=== PATIENT | male | born 1935 | race Caucasian/White ===

== ENCOUNTER → 2022-05-08 | Outpatient (CLI) | payer MEDICARE ==
[2022-05-08 14:07] LABS: Partial Thromboplastin Time 32.5 sec (22.0-30.0); Prothrombin Time 10.6 sec (9.0-12.0)
[2022-05-08 17:50] LABS: HCT 40.7 % (39.6-50.0); HGB 13.2 g/dL (13.0-17.0); MCH 29.4 pg (27.0-32.0); MCHC 32.4 g/dL (32.0-37.0); MCV 90.6 fL (80.0-97.0); Mean Platelet Volume 9.6 fL (9.5-12.2); NRBC Per 100 WBC 0 /100 WBCS (0.0-0.0); Platelet Count 447 X 10*3/uL (140-440); RBC 4.49 X 10*6/uL (4.40-5.60); RDW 12.9 % (11.5-14.5); WBC 10.55 X 10*3/uL (4.50-10.00)
[2022-05-08 18:04] LABS: African American GFR (CKD) 84.5 (60.0-200.0); Albumin 4.1 g/dL (3.8-4.9); Albumin/Globulin Ratio 1.72 (1.60-3.17); Anion Gap 12.3 mmol/L (10.00-18.00); BUN/Creat Ratio 23.84 Ratio (12.00-20.00); Blood Urea Nitrogen 22.6 mg/dL (9.0-27.0); Calcium 9.1 mg/dL (8.7-10.3); Carbon Dioxide 23.7 mmol/L (20.0-27.5); Globulin 2.4 g/dL (1.6-3.3); Non-African American GFR(CKD) 72.9 (60.0-200.0); Potassium 4.6 mmol/L (3.5-5.5); Total Bilirubin 0.3 mg/dL (0.30-1.20); Total Protein 6.5 g/dL (6.2-8.2)
[2022-05-08 18:11] LABS: Appearance,Urine Clear (Clear); Bilirubin,Urine Negative (Negative); Blood,Urine Negative (Negative); Color,Urine Yellow (Yellow); Ketones,Urine Trace mg/dL (Negative); Nitrite,Urine Negative (Negative); Specific Gravity,Urine 1.023 (1.001-1.030); Urobilinogen,Urine 0.2 (0.2,1.0)
[2022-05-08 18:17] LABS: Bacteria,Urine None Seen /HPF (None Seen)
== END | disposition home or self-care (01) ==
LOC: LABPAT 12:32
PROVIDERS: ATTEND Orthopaedic Surgery
DX: Z01.812 Encounter for preprocedural laboratory examination (principal); M16.12 Unilateral primary osteoarthritis, left hip; I26.99 Other pulmonary embolism without acute cor pulmonale; I82.401 Acute embolism and thrombosis of unspecified deep veins of right lower extremity
CPT/HCPCS: 80053; 81001; 85027; 85610; 85730; 87070

== ENCOUNTER → 2022-06-12 | Outpatient (CLI) | payer MEDICARE ==
[2022-06-12 12:37] LABS: Partial Thromboplastin Time 32.4 sec (22.0-30.0); Prothrombin Time 10.5 sec (9.0-12.0)
[2022-06-12 17:54] LABS: African American GFR (CKD) 77.7 (60.0-200.0); Albumin 4.1 g/dL (3.8-4.9); Albumin/Globulin Ratio 1.56 (1.60-3.17); Anion Gap 11.5 mmol/L (10.00-18.00); BUN/Creat Ratio 23.86 Ratio (12.00-20.00); Blood Urea Nitrogen 24.1 mg/dL (9.0-27.0); Calcium 9.1 mg/dL (8.7-10.3); Carbon Dioxide 24.4 mmol/L (20.0-27.5); Globulin 2.6 g/dL (1.6-3.3); Potassium 4.5 mmol/L (3.5-5.5); Total Bilirubin 0.4 mg/dL (0.30-1.20); Total Protein 6.7 g/dL (6.2-8.2)
[2022-06-12 18:00] LABS: HCT 40.3 % (39.6-50.0); HGB 12.9 g/dL (13.0-17.0); MCH 29.5 pg (27.0-32.0); Mean Platelet Volume 10.1 fL (9.5-12.2); NRBC Per 100 WBC 0 /100 WBCS (0.0-0.0); Platelet Count 247 X 10*3/uL (140-440); RBC 4.38 X 10*6/uL (4.40-5.60); RDW 14.1 % (11.5-14.5); WBC 6.72 X 10*3/uL (4.50-10.00)
[2022-06-12 23:24] LABS: Appearance,Urine Clear (Clear); Bilirubin,Urine Negative (Negative); Blood,Urine Negative (Negative); Color,Urine Yellow (Yellow); Ketones,Urine Negative (Negative); Nitrite,Urine Negative (Negative); PH, Urine 5.5 (5.0-8.0); Specific Gravity,Urine 1.017 (1.001-1.030); Urobilinogen,Urine 0.2 (0.2,1.0)
[2022-06-12 23:30] LABS: Bacteria,Urine None Seen /HPF (None Seen)
== END ==
LOC: LABPAT 11:23
PROVIDERS: ATTEND Orthopaedic Surgery
DX: M16.12 Unilateral primary osteoarthritis, left hip (principal)
CPT/HCPCS: 80053; 81001; 85027; 85610; 85730; 87070

== ENCOUNTER 2022-06-20 09:06 | Day surgery (SDC) | payer MEDICARE ==
[2022-06-15 13:24] VITALS: BMI 29.0
[~2022-06-20 09:06] MED LIST: ACETAMINOPHEN TAB 500 MG TAB PO PRN; GABAPENTIN 300 MG CAP PO PRN; HYDROmorphone 0.5 MG/0.5 ML SYRINGE IVP PRN; MAGNESIUM HYDROXIDE 2,400 MG/10 ML CUP PO PRN; MELOXICAM 7.5 MG TAB PO PRN; NALOXONE 0.4 MG/ML 1 ML VIAL IV PRN; TRANEXAMIC ACID IN NACL,ISO-OS 1,000 MG in SALINE 1 100ML.BAG IVPB PRN
[2022-06-20] MEDS ORDERED: DEXAMETHASONE SOD PHOSPHATE 4 MG/ML 1 ML VIAL IV ONE (09:24)
[2022-06-20] MEDS ORDERED: ONDANSETRON 4 MG/2 ML VIAL IVP ONE (09:24)
[2022-06-20] MEDS ORDERED: HYDROmorphone 0.5 MG/0.5 ML SYRINGE IVP PRN (09:24)
[2022-06-20] MEDS: LACTATED RINGERS 1,000 ML IV SCH (10:08)
[2022-06-20] MEDS ORDERED: MIDAZOLAM 2 MG/2 ML VIAL IVP ONE (10:10)
[2022-06-20] MEDS ORDERED: fentaNYL (PF) 50 MCG/1 ML VIAL IVP ONE (10:10)
[2022-06-20] MEDS ORDERED: ceFAZolin 1,000 MG in SODIUM CHLORIDE 0.9% 1,000 ML IRRIGATION ONE (11:17)
[2022-06-20] MEDS ORDERED: ROPIVACAINE 5 MG/ML 30 ML VIAL MISCELLANE ONE ×2 (11:45→12:44)
[2022-06-20] MEDS ORDERED: LACTATED RINGERS 1,000 ML IV ONE (12:45)
--- NOTE | 2022-06-20 12:54 | P.OP ---
Date of Procedure: 06/20/22 Preoperative Diagnosis: Severe osteoarthritis left hip Postoperative Diagnosis: Severe osteoarthritis left hip Procedure(s) Performed: Left total hip arthroplasty with a direct anterior approach Implants: [employer] Polarstem standard size 4 with a collar [employer] R3, multi-hole hemispherical acetabular shell, 56 mm [employer] Reflection 6.5 mm cancellus screw, 20 mm 2, 25 mm, 15 mm [employer] R3, XLPE 20 acetabular liner [employer] Oxinium femoral head 36 m, +8 All components were press-fit. The articulation is Oxinium on polyethylene. Anesthesia: spinal Surgeon: Bear Jordan Senior Sales Manager #1: Yarelis Stovall Estimated Blood Loss (ml): 200 Pathology: other (Femoral head) Condition: stable Disposition: PACU Indications for Procedure: After failure of conservative treatment we discussed the surgical and nonsurgical treatment options at length. Patient wishes to proceed with a total hip arthroplasty with a direct anterior approach. Complications specific to this procedure were discussed at length, including but not limited to infection, leg length discrepancy, dislocation, nerve injury, and fracture. Covid-19 was also discussed at length with the patient, and they are aware of the current policies and procedures. The patient was given the option of delaying surgery, but they elect to proceed knowing these risks. Patient is aware of all these complications and informed consent was obtained Operative Findings: The operative findings are consistent with severe osteoarthritis of the left hip Description of Procedure: The patient was seen and evaluated in the preoperative area and the consent was reviewed. The operative site was marked with a skin marker. The patient verified the procedure and operative site. A CHINYERE block was placed by anesthesia in the preoperative area. The patient was then brought to the operating room and given preoperative antibiotics intravenously. 1 g of Tranexamic acid was also given intravenously. A spinal anesthetic was administered by the anesthesia department. The patient was then placed on the Pound table with the bony prominences well-padded. The hip area was then prepped with a ChloraPrep solution and draped in the usual sterile fashion. A universal timeout was then performed, which confirmed the patient's name, surgical site, ALLERGIES, and procedure being performed on the consent. Next the incision site was located at 1 cm distal and 4 cm lateral to the anterior superior iliac spine. The skin and subcutaneous tissues were sharply incised. Incision was carefully dissected down to the fascia overlying the tensor fascia kendy muscle. This fascia was then incised in line with the muscle fibers. Care was taken to stay laterally in order to avoid injuring the lateral femoral cutaneous nerve. Next, using blunt finger dissection, the tensor fascia kendy muscle was dissected off its investing fascia. The muscle was then carefully retracted laterally with a cobra retractor over the lateral neck of the femur. Next, the circumflex vessels were identified and cauterized using the Aquamantis device. The anterior hip capsule was then exposed. The capsule was then opened and an inverted T fashion. The retractors were then placed intracapsularly. The retractors were maintained intracapsular throughout the procedure. The proximal femur was then visualized. Fluoroscopic x-rays were then taken in order to evaluate the preoperative leg lengths. A small amount of traction was placed on the leg. The femoral neck was then osteotomized at the appropriate level above the lesser trochanter. A small wedge of bone was then removed from the remaining femoral head. Next, using a corkscrew the femoral head was removed from the acetabulum. On gross visual inspection, the femoral head had complete loss of articular cartilage and multiple periarticular osteophytes. The femoral head was then measured. Attention was then turned to the acetabulum. The acetabulum was exposed and any remaining labrum was excised. Sequential reaming of the acetabulum was performed using fluoroscopic guidance until there was a good bed of bleeding cancellus bone. When the appropriate size was reached, a trial was then placed. The position and fit of the trial was checked with fluoroscopy. The trial was then removed. Then, using fluoroscopic guidance, the final implant was impacted at 20 of anteversion and 40 of abduction, and fully seated in the acetabulum. 4 screws were then placed in the acetabulum. Again fluoroscopy was used to check position of the screws. Next, the liner was then impacted, with a 20 elevated liner located in the anterior superior quadrant. Component locking was confirmed. Attention was then directed to the femur. With the aid of the Pound table, the femur was externally rotated to approximately 130, extended, and adducted under the opposite leg. A side hook was then placed under the proximal femur, and the side hook elevator was used to elevate the proximal femur while releasing the capsule. Retractors were then placed. A capsular release was performed, as well as a release of the conjoined tendon, which afforded excellent visualization of the proximal femur. Next, a box osteotome was used to lateralize the proximal femur. A wharf hand was then used to locate the femoral canal. Sequential broaching was then performed with appropriate size which afforded excellent fixation in the proximal femur. A trial was then placed with appropriate head and neck, and the hip was gently reduced with the aid of the Pound table. Fluoroscopy was then used to check position of the components, as well as to evaluate the leg lengths and offset. The leg lengths and offset were measured as closely as possible to ensure stability of the hip. The hip was then gently dislocated and the trials were then removed. Final implants were then impacted and the hip was again reduced. Final fluoroscopic x-rays confirmed that the components were in anatomic position. The leg lengths and offset were measured and were found to coincide with the trial measurements. The hip was also taken through range of motion, and found to be stable. The hip was then copiously irrigated with antibiotic solution with pulsatile lavage. The hip was then irrigated with Irrisept solution. The soft tissues were then injected with a ropivacaine solution. A second dose of 1 g of Tranexamic acid was also given intravenously. The fascia was then closed with 2-0 strata fix suture. The subcutaneous tissue was closed with 3-0 Vicryl. The subcuticular tissue was closed with 3-0 strata fix suture. The skin was then closed with Exofin skin glue. After the glue and dried, and Optifoam silver impregnated dressing was applied. The patient was then transferred to the recovery room in stable condition. The assistant broker RANDA Leahy was required due to the complexity of surgery, and the need for skilled surgical territory manager for positioning, draping, exposure, retraction, and closure of the wound.
--- NOTE | 2022-06-20 13:27 | P.ANPRN ---
Procedure Note - Anesthesia - Nerve Block Performed Left Dmitriy Single Time Out Performed: Yes (1010) Date of Procedure: 06/20/22 Procedure Start Time: 10:10 Procedure Stop Time: :19 Location of Patient: PreOp Indication: Acute Post-Operative Pain, Dx/Pain Location, Requested by Surgeon Specifically requested for management of pain by : Bear Jordan Sedation Type: Sedate with meaningful contact maintained Preparation: Sterile Prep Position: Supine Catheter: None Needle Types: Pajunk Needle Gauge: 21 (100 mm) Ultrasound used to visualize needle placement: Yes Ultrasound used to observe medication spread: Yes Injectate: 0.5% Ropivacaine (see comment for volume) (20 cc + 10 cc of Normal saline) Blood Aspirated: No Pain Paresthesia on Injection Noted: No Resistance on Injection: Normal Image Stored and Saved: Yes Events: Uneventful and Well Tolerated
--- NOTE | 2022-06-20 14:07 | XR ---
EXAMINATION TYPE: XR Hip Limited LT DATE OF EXAM: 06/20/2022 CLINICAL HISTORY: Postoperative evaluation TECHNIQUE: Single portable view of the left hip was submitted. FINDINGS: Noted are changes of total hip arthroplasty with femoral and acetabular components appearin g well seated. Alignment is anatomic. Postsurgical soft tissue changes are evident. IMPRESSION: Satisfactory postoperative alignment
--- NOTE | 2022-06-20 15:25 | FL ---
EXAMINATION TYPE: FL guidance operating room DATE OF EXAM: 06/20/2022 FLUOROSCOPY Fluoroscopy time of 56 seconds was used during anterior left hip replacement. 3 image/s document/s t he procedure.
[2022-06-20] MEDS ORDERED: cloNIDine HCL 0.1 MG TAB PO STA (16:18)
[2022-06-20] MEDS: HYDROmorphone 0.5 MG/0.5 ML SYRINGE IVP PRN (16:28)
[2022-06-20] MEDS: ASPIRIN 325 MG TAB PO SCH (21:42)
[2022-06-20] MEDS: lisinopriL 20 MG TAB PO SCH (21:42)
[2022-06-20] MEDS: SENNOSIDES-DOCUSATE SODIUM 1 EACH TAB PO SCH (21:42)
[2022-06-20] MEDS: atenoloL 25 MG TAB PO SCH (21:42)
[2022-06-20] MEDS: NON FORMULARY DRUG (Simvastatin [Simvastatin] 40 MG Tablet) PO SCH (21:44)
[2022-06-20] MEDS: traMADol 50 MG TAB PO PRN (21:48)
[2022-06-21] MEDS: HYDROmorphone 0.5 MG/0.5 ML SYRINGE IVP PRN (00:04)
--- NOTE | 2022-06-21 07:34 | P.PN ---
Subjective Progress Note Date: 06/21/22 Principal diagnosis: Primary osteoarthritis left hip. Status post total left hip arthroplasty with direct anterior approach. This is an 87-year-old male who is status post total left hip arthroplasty with direct anterior approach. The patient is doing well from an orthopedic sta ndpoint. He has no new complaints or concerns today. Vital signs are stable. Objective - Vital Signs Vital signs: Vital Signs Temp 97.7 F 06/21/22 06:52 Pulse 50 L 06/21/22 06:52 Resp 17 06/21/22 06:52 BP 113/61 06/21/22 06:52 Pulse Ox 96 06/21/22 06:52 FiO2 Intake & Output 06/20/22 06/21/22 06/21/22 18:59 06:59 18:59 Intake Total 1921 730 Output Total 200 350 Balance 1721 380 Weight 84.3 kg Intake: IV 1201 Intake, IV Titration 250 Amount Lactated Ringers 1,000 ml 200 @ 20 mls/hr IV .Q24H [facility] Rx#:[id number] ceFAZolin 2 gm In Sodium 50 Chloride 0.9% 50 ml @ 100 mls/hr IVPB Q8H [facility] Rx#: [id number] Oral 720 480 Output: Urine 350 Estimated Blood Loss 200 - Exam This is a pleasant 87-year-old male in no acute distress. He is alert and orien cassidy 3. Exam of the left hip reveals that his dressing is clean, dry and intact. He has full foot and ankle motion without difficulty or pain. Neurovascular status to the lower extremity is intact. Assessment and Plan (1) Primary localized osteoarthritis of left hip Current Visit: Yes Status: Acute Code(s): M16.12 - UNILATERAL PRIMARY OSTEOARTHRITIS, LEFT HIP SNOMED Code(s): 504605026244905 (2) Status post total hip replacement, left Current Visit: Yes Status: Acute Code(s): Z96.642 - PRESENCE OF LEFT ARTIFICIAL HIP JOINT SNOMED Code(s): 406466247741 Plan: The clinical findings are discussed with the patient. He is awaiting rehab placement. We will begin physical therapy today. Plan discharged to inpatient rehab when cleared medically and placement is arranged.
[2022-06-21] MEDS: MONTELUKAST 10 MG TAB PO SCH (08:08)
[2022-06-21] MEDS: MULTIVITAMINS, THERA 1 EACH TAB PO SCH (08:08)
[2022-06-21] MEDS: lisinopriL 20 MG TAB PO SCH ×2 (08:08→21:25)
[2022-06-21] MEDS: ASPIRIN 325 MG TAB PO SCH (08:08)
[2022-06-21] MEDS: traMADol 50 MG TAB PO PRN ×3 (08:31→21:28)
[2022-06-21] MEDS: PANTOPRAZOLE 40 MG TABLET PO SCH (08:39)
[2022-06-21] MEDS: LACTATED RINGERS 1,000 ML IV SCH (09:12)
[2022-06-21 10:48] LABS: Basophils # (A) 0.02 X 10*3/uL (0.00-0.10); Basophils % (A) 0.2 %; Eosinophils # (A) 0.04 X 10*3/uL (0.04-0.35); Eosinophils % (A) 0.4 %; HCT 35.4 % (39.6-50.0); HGB 11.5 g/dL (13.0-17.0); Immature Grans, Automated 0.2 %; Lymphocytes # (A) 0.87 X 10*3/uL (0.90-5.00); Lymphocytes % (A) 9.3 %; MCH 29.9 pg (27.0-32.0); MCHC 32.5 g/dL (32.0-37.0); MCV 92.2 fL (80.0-97.0); Mean Platelet Volume 10.7 fL (9.5-12.2); Monocytes # (A) 1.23 X 10*3/uL (0.20-1.00); Monocytes % (A) 13.2 %; NRBC Per 100 WBC 0 /100 WBCS (0.0-0.0); Neutrophils # (A) 7.14 X 10*3/uL (1.80-7.70); Neutrophils % (A) 76.7 %; Platelet Count 251 X 10*3/uL (140-440); RBC 3.84 X 10*6/uL (4.40-5.60); RDW 13.9 % (11.5-14.5); WBC 9.32 X 10*3/uL (4.50-10.00)
--- NOTE | 2022-06-21 19:39 | P.CONS ---
History of Present Illness - Reason for Consult Consult date: 06/20/22 Medical management Requesting physician: Bear Jordan - Chief Complaint Hip surgery - History of Present Illness This is a pleasant 87-year-old patient, follows with Dr. Read. Chronic stable medical conditions include CAD with stent, hypertension, hyperlipidemia, peptic ulcer disease. Patient earlier today underwent left total hip arthroplasty. Some pain. No ch est pain no shortness breath. Comfortable. Laying in bed. Review of systems: GEN.: Retired EYES: None HEENT: None NECK: None RESPIRATORY: None CARDIOVASCULAR: None GASTROINTESTINAL: None GENITOURINARY: None MUSCULOSKELETAL: Joint pains LYMPHATICS: None HEMATOLOGICAL: None PSYCHIATRY: None NEUROLOGICAL: None Past medical history to include: Hypertension, hyperlipidemia, osteoarthritis, prostate cancer in 2003 treated with radiation, bleeding peptic ulcer in ,: Infection in April 2022, CAD with stent 2 Social history: This smoke in the past chewing tobacco. No alcohol. 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 Physical examination: VITAL SIGNS: 97.9, 16, 17, 171/73, 98% room air] GENERAL: BMI 30, declining but awake. EYES: Pupils equal. Conjunctiva normal. HEENT: External appearance of nose and ears normal, oral cavity grossly normal. NECK: JVD not raised; masses not palpable. HEART: First and second heart sounds are normal; no edema. LUNGS: Respiratory rate normal; clear to auscultation. ABDOMEN: Soft, nontender, liver spleen not palpable, no masses palpable. PSYCH: Alert and oriented x3; mood and affect normal. MUSCULOSKELETAL:No Clubbing/cyanosis;muscles-grossly intact. OA NEUROLOGICAL: Cranial nerves grossly intact; no facial asymmetry, power and sensation grossly intact. LYMPHATICS: No lymph nodes palpable in the axilla and neck INVESTIGATIONS, reviewed in the clinical context: 06/12/2022: White count 6.7 hemoglobin 12.9 potassium 4.5 creatinine 1.0 Assessment and plan: 1 -Left total hip arthroplasty Aspirin for DVT prophylaxis. Pain control. -Primary osteoarthritis Pain medications as needed -CAD with a prior history of stent Tenormin, aspirin -Peptic ulcer disease in the past. Prilosec -Essential hypertension Enalapril, Tenormin -Hyperlipidemia Simvastatin Care was discussed with the patient. Question answered. Thank you Dr. Jodran Past Medical History Past Medical History: Cancer, Hyperlipidemia, Hypertension, Osteoarthritis (OA) Additional Past Medical History / Comment(s): Covid infection Apr 2022,prostate CA-2003 40+ radiation txs, bleeding ulcer 1969 History of Any Multi-Drug Resistant Organisms: None Reported Past Surgical History: Cholecystectomy, Heart Catheterization With Stent, Hernia Repair Additional Past Surgical History / Comment(s): cardiac stents x2,rt hip x2,left total knee Past Anesthesia/Blood Transfusion Reactions: No Reported Reaction Additional Past Anesthesia/Blood Transfusion Reaction / Comm: no hx blood transfusion Date of Last Stent Placement:: 08-25-15 Past Psychological History: No Psychological Hx Reported Smoking Status: Former smoker Past Alcohol Use History: None Reported Additional Past Alcohol Use History / Comment(s): chewed tobacco for 30 yrs,quit chewing tobacco around age 61s Past Drug Use History: None Reported - Past Family History Mother Family Medical History: No Reported History Medications and Allergies Home Medications Medication Instructions Recorded Confirmed Type Aspirin 81 mg PO DAILY 06/15/22 06/15/22 History Enalapril Maleate 20 mg PO QAM 06/15/22 06/15/22 History Enalapril [Vasotec] 10 mg PO 06/15/22 06/15/22 History Fluticasone Nasal [place] [Flonase 2 spray EA NOSTRIL BID PRN 06/15/22 06/15/22 History Nasal [place]] Montelukast Sodium [Singulair] 10 mg PO QA 06/15/22 06/15/22 History Multivitamins, Thera [Multivitamin 1 tab PO DAILY 06/15/22 06/15/22 History (formulary)] Omeprazole [PriLOSEC] 20 mg PO QAM 06/15/22 06/15/22 History Simvastatin 40 mg PO 06/15/22 06/15/22 History atenoloL [Tenormin] 25 mg PO 06/15/22 06/15/22 History Aspirin 325 mg PO BID #60 tab 06/20/22 Rx Sennosides [Senokot] 2 tab PO DAILY PRN #60 tablet 06/20/22 Rx traMADol HCl [Ultram] 1 - 2 tab PO Q6H PRN #32 tab 06/20/22 Rx Allergies Allergy/AdvReac Type Severity Reaction Status Date / Time atorvastatin Allergy muscle pain Verified 06/20/22 09:43 Physical Exam Vitals: Vital Signs Temp Pulse Resp BP Pulse Ox 06/20/22 20:00 97.9 F 60 17 171/73 98 06/20/22 18:07 170/74 06/20/22 16:54 57 L 220/90 96 06/20/22 16:48 195/81 06/20/22 16:39 52 L 195/81 96 06/20/22 16:24 55 L 232/87 99 06/20/22 16:23 220/84 06/20/22 16:08 65 227/92 99 06/20/22 16:04 55 L 221/73 99 06/20/22 15:55 67 213/90 96 06/20/22 15:39 63 205/79 100 06/20/22 15:24 57 L 200/81 99 06/20/22 15:09 55 L 195/83 98 06/20/22 14:54 57 L 191/75 98 06/20/22 14:39 66 183/86 95 06/20/22 14:23 56 L 18 183/74 99 06/20/22 13:54 65 20 148/61 97 06/20/22 13:39 63 21 140/62 95 06/20/22 13:24 59 L 12 148/63 94 L 06/20/22 13:09 64 9 L 153/67 94 L 06/20/22 10:27 54 L 14 174/72 99 06/20/22 10:04 59 L 214/84 06/20/22 09:46 97.1 F L 60 16 238/107 99 Intake and Output 06/20/22 06/20/22 06/20/22 06:59 14:59 22:59 Intake Total 1201 720 Output Total 200 Balance 1001 720 Intake: IV 1201 Oral 720 Output: Estimated Blood Loss 200 Other: Weight 84.3 kg Results CBC & Chem 7: 06/21/22 05:22
--- NOTE | 2022-06-21 19:43 | P.PN ---
Progress Note - Text Progress Note Date: 06/21/22 - Chief Complaint Hip surgery Hospital course This is a pleasant 87-year-old patient, follows with Dr. Read. Chronic stable medical conditions include CAD with stent, hypertension, hyperlipidemia, peptic ulcer disease. Patient earlier today underwent left total hip arthroplasty. Some pain. No chest pain no shortness breath. Comfortable. Laying in bed. June 21: No chest pain no shortness breath. Oral intake fair. Plan is for patient to go to rehab. Working with therapy. Patient concerned about his peptic ulcer disease because of aspirin. Discussed with Mirna Bates from orthopedics. Change patient to subcu Lovenox. DC aspirin. Active Medications Atenolol (Atenolol 25 Mg Tab) 25 mg PO [facility] Last Admin: 06/20/22 21:42 Dose: 25 mg Enoxaparin Sodium (Enoxaparin 30 Mg/0.3 Ml Syringe) 30 mg SQ Q12HR [facility] Stop: 06/29/22 23:59 Hydromorphone HCl (Hydromorphone 0.5 Mg/0.5 Ml Syringe) 0.125 mg IVP Q3HR PRN PRN Reason: Pain Scale 1 to 3 Stop: 07/20/22 08:52 Hydromorphone HCl (Hydromorphone 0.5 Mg/0.5 Ml Syringe) 0.5 mg IVP Q3HR PRN PRN Reason: Pain Scale 7 to 10 Stop: 07/20/22 08:52 Last Admin: 06/21/22 00:04 Dose: 0.5 mg Hydromorphone HCl (Hydromorphone 0.5 Mg/0.5 Ml Syringe) 0.25 mg IVP Q3HR PRN PRN Reason: Pain Scale 4 to 6 Stop: 07/20/22 08:52 Lactated Ringer's (Lactated Ringers) 1,000 mls @ 20 mls/hr IV .Q24H [facility] Stop: 07/20/22 09:25 Last Admin: 06/21/22 09:12 Dose: Not Given Lisinopril (Lisinopril 20 Mg Tab) 20 mg PO [facility] Last Admin: 06/20/22 21:42 Dose: 20 mg Lisinopril (Lisinopril 20 Mg Tab) 40 mg PO [facility] Last Admin: 06/21/22 08:08 Dose: 40 mg Magnesium Hydroxide (Magnesium Hydroxide 2,400 Mg/10 Ml Cup) 2,400 mg PO DAILY PRN PRN Reason: Constipation Stop: 07/20/22 08:52 Montelukast Sodium ([facility] 10 Mg Tab) [facility] Admin: 06/21/22 08:08 Dose: 10 mg Multivitamins (Multivitamins, Thera 1 Each Tab) 1 each PO DAILY [facility] Last Admin: 06/21/22 08:08 Dose: 1 each Naloxone HCl (Naloxone 0.4 Mg/Ml 1 Ml Vial) 0.2 mg IV Q2M PRN PRN Reason: Opioid Reversal Stop: 07/20/22 08:52 Non-Formulary Medication (Simvastatin [Simvastatin]) 40 mg PO [facility] Last Admin: 06/20/22 21:44 Dose: Not Given Pantoprazole Sodium (Pantoprazole 40 Mg Tablet) 40 mg PO [facility] Last Admin: 06/21/22 08:39 Dose: 40 mg Senna/Docusate Sodium (Sennosides-Docusate Sodium 1 Each Tab) 2 each PO [facility] Stop: 07/20/22 21:01 Last Admin: 06/20/22 21:42 Dose: 2 each Tramadol HCl (Tramadol 50 Mg Tab) 50 mg PO Q6H PRN PRN Reason: Pain Scale 1 to 5 Stop: 07/20/22 08:56 Last Admin: 06/21/22 08:31 Dose: 50 mg Tramadol HCl (Tramadol 50 Mg Tab) 100 mg PO QID PRN PRN Reason: Pain Scale 6 to 10 Stop: 07/20/22 08:56 Last Admin: 06/21/22 13:46 Dose: 100 mg Past medical history to include: Hypertension, hyperlipidemia, osteoarthritis, prostate cancer in 2003 treated with radiation, bleeding peptic ulcer in ,: Infection in April 2022, CAD with stent 2 Social history: This smoke in the past chewing tobacco. No alcohol. 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 Physical examination: VITAL SIGNS: 97.8, 59, 18, 125/67, 96% room air GENERAL: Sitting up, comfortable. EYES: Pupils equal. Conjunctiva normal. HEENT: External appearance of nose and ears normal, oral cavity grossly normal. NECK: JVD not raised; masses not palpable. HEART: First and second heart sounds are normal; no edema. LUNGS: Respiratory rate normal; clear to auscultation. ABDOMEN: Soft, nontender, liver spleen not palpable, no masses palpable. PSYCH: Alert and oriented x3; mood and affect normal. MUSCULOSKELETAL:No Clubbing/cyanosis;muscles-grossly intact. OA INVESTIGATIONS, reviewed in the clinical context: June 21: White count 9.3 hemoglobin 11.5 platelets 251 06/12/2022: White count 6.7 hemoglobin 12.9 potassium 4.5 creatinine 1.0 Assessment and plan: 1 -Left total hip arthroplasty DC aspirin because of peptic ulcer disease. Subcu Lovenox 30 mg every 12 for 7 days. Pain control. -Primary osteoarthritis Pain medications as needed -CAD with a prior history of stent Tenormin, aspirin 81 mg -Peptic ulcer disease in the past. Prilosec -Essential hypertension Enalapril, Tenormin -Hyperlipidemia Simvastatin DC aspirin. Subcu Lovenox. Other medications to continue. Patient presented to rehab tomorrow. Thank you Dr. Jordan
[2022-06-21] MEDS: ENOXAPARIN 30 MG/0.3 ML SYRINGE SQ SCH (21:24)
[2022-06-21] MEDS: SENNOSIDES-DOCUSATE SODIUM 1 EACH TAB PO SCH (21:24)
[2022-06-21] MEDS: atenoloL 25 MG TAB PO SCH (21:24)
[2022-06-21] MEDS: NON FORMULARY DRUG (Simvastatin [Simvastatin] 40 MG Tablet) PO SCH (23:41)
[2022-06-22] MEDS: ENOXAPARIN 30 MG/0.3 ML SYRINGE SQ SCH ×2 (08:46→21:38)
[2022-06-22] MEDS: PANTOPRAZOLE 40 MG TABLET PO SCH (08:46)
[2022-06-22] MEDS: MONTELUKAST 10 MG TAB PO SCH (08:46)
[2022-06-22] MEDS: MULTIVITAMINS, THERA 1 EACH TAB PO SCH (08:46)
[2022-06-22] MEDS: lisinopriL 20 MG TAB PO SCH ×2 (08:46→21:38)
--- NOTE | 2022-06-22 10:49 | P.DS ---
Providers Expected date of discharge: 06/22/22 Attending physician: Bear Jordan Consults: 06/20/22 08:51 Consult Physician Routine Consulting Provider: Abel Velazquez Consult Reason/Comments: medical management Do you want consulting provider notified?: Yes Primary care physician: Billy Read - Discharge Diagnosis(es) (1) Primary localized osteoarthritis of left hip Current Visit: Yes Status: Acute (2) Status post total hip replacement, left Current Visit: Yes Status: Acute Hospital Course: This is a 87-year-old male with known history of degenerative arthritis of the left hip. The patient presented for evaluation as an outpatient. After discussion and consideration patient elects to proceed with total hip arthroplasty. The patient is seen preoperatively by Dr. Jordan and medically cleared for surgery by their primary care physician. Patient is admitted to [facility] on 06/20/2019 for total hip arthroplasty. The procedure is performed without complication or sequelae. The patient is doing well postoperatively. Labs and vital signs are stable on day of discharge. On day of discharge patient's hip incision is healing well. There is minimal erythema. There is no drainage noted at this time. There is minimal soft tissue swelling to the hip and thigh. Patient has full foot and ankle motion without difficulty or pain. Calf is soft and nontender to palpation. Neurovascular status to the left lower extremity is intact. Patient is discharged to rehab in good condition. Please see med rec for accurate list of home medications. Plan - Discharge Summary Discharge Rx Participant: Yes New Discharge Prescriptions: New Sennosides [Senokot] 2 tab PO DAILY PRN #60 tablet PRN Reason: Constipation traMADol HCl [Ultram] 1 - 2 tab PO Q6H PRN #32 tab PRN Reason: Pain Aspirin 325 mg PO BID #60 tab Continue atenoloL [Tenormin] 25 mg PO HS Fluticasone Nasal [place] [Flonase Nasal [place]] 2 spray EA NOSTRIL BID PRN PRN Reason: Congestion Montelukast Sodium [Singulair] 10 mg PO QAM Simvastatin 40 mg PO HS Enalapril [Vasotec] 10 mg PO HS Enalapril Maleate 20 mg PO QAM Aspirin 81 mg PO DAILY Multivitamins, Thera [Multivitamin (formulary)] 1 tab PO DAILY Omeprazole [PriLOSEC] 20 mg PO QAM Discharge Medication List Aspirin 81 mg PO DAILY 06/15/22 [History] Enalapril Maleate 20 mg PO QAM 06/15/22 [History] Enalapril [Vasotec] 10 mg PO HS 06/15/22 [History] Fluticasone Nasal [place] [Flonase Nasal [place]] 2 spray EA NOSTRIL BID PRN 06/15/22 [History] Montelukast Sodium [Singulair] 10 mg PO QAM 06/15/22 [History] Multivitamins, Thera [Multivitamin (formulary)] 1 tab PO DAILY 06/15/22 [History] Omeprazole [PriLOSEC] 20 mg PO QAM 06/15/22 [History] Simvastatin 40 mg PO HS 06/15/22 [History] atenoloL [Tenormin] 25 mg PO HS 06/15/22 [History] Aspirin 325 mg PO BID #60 tab 06/20/22 [Rx] Sennosides [Senokot] 2 tab PO DAILY PRN #60 tablet 06/20/22 [Rx] traMADol HCl [Ultram] 1 - 2 tab PO Q6H PRN #32 tab 06/20/22 [Rx] Follow up Appointment(s)/Referral(s): Bear Jordan DO [Doctor of Osteopathic Medicine] - 2 Weeks Activity/Diet/Wound Care/Special Instructions: Weightbearing as tolerated with walker. Leave dressing intact. Dressing may be removed by home care nurse or by patient in 7 days. Then change dressing twice daily until follow up. May shower with initial dressing intact and after removal. If dressing become saturated, please remove. Please take aspirin 325mg twice daily for 30 days to prevent blood clots. Recommend use of compression stockings daily until follow up to help prevent swelling and blood clots. May remove at night before sleeping. Please follow-up with [facility] in 2 weeks and call with any questions or concerns, . Discharge Disposition: TRANSFER TO SNF/ECF
[2022-06-22] MEDS: SENNOSIDES-DOCUSATE SODIUM 1 EACH TAB PO SCH (21:38)
[2022-06-22] MEDS: atenoloL 25 MG TAB PO SCH (21:38)
[2022-06-22] MEDS: NON FORMULARY DRUG (Simvastatin [Simvastatin] 40 MG Tablet) PO SCH (21:38)
--- NOTE | 2022-06-22 22:39 | P.PN ---
Progress Note - Text Progress Note Date: 06/22/22 - Chief Complaint Hip surgery Hospital course This is a pleasant 87-year-old patient, follows with Dr. Read. Chronic stable medical conditions include CAD with stent, hypertension, hyperlipidemia, peptic ulcer disease. Patient earlier today underwent left total hip arthroplasty. Some pain. No chest pain no shortness breath. Comfortable. Laying in bed. June 21: No chest pain no shortness breath. Oral intake fair. Plan is for patient to go to rehab. Working with therapy. Patient concerned about his peptic ulcer disease because of aspirin. Discussed with Mirna Bates from orthopedics. Change patient to subcu Lovenox. DC aspirin. June 22: Stable. Pain control. Tolerating diet. Will be going to rehab. No new issues. Meds reviewed Past medical history to include: Hypertension, hyperlipidemia, osteoarthritis, prostate cancer in 2003 treated with radiation, bleeding peptic ulcer in ,: Infection in April 2022, CAD with stent 2 Social history: This smoke in the past chewing tobacco. No alcohol. 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 Physical examination: VITAL SIGNS: 97.9, 72, 18, 1 57 x 67, 94% room air GENERAL: Sitting up, comfortable. EYES: Pupils equal. Conjunctiva normal. HEENT: External appearance of nose and ears normal, oral cavity grossly normal. NECK: JVD not raised; masses not palpable. HEART: First and second heart sounds are normal; no edema. LUNGS: Respiratory rate normal; clear to auscultation. ABDOMEN: Soft, nontender, liver spleen not palpable, no masses palpable. PSYCH: Alert and oriented x3; mood and affect normal. MUSCULOSKELETAL:No Clubbing/cyanosis;muscles-grossly intact. OA INVESTIGATIONS, reviewed in the clinical context: June 21: White count 9.3 hemoglobin 11.5 platelets 251 06/12/2022: White count 6.7 hemoglobin 12.9 potassium 4.5 creatinine 1.0 Assessment and plan: 1 -Left total hip arthroplasty DC aspirin because of peptic ulcer disease. Subcu Lovenox 30 mg every 12 for 7 days. Pain control. -Primary osteoarthritis Pain medications as needed -CAD with a prior history of stent Tenormin, aspirin 81 mg -Peptic ulcer disease in the past. Prilosec -Essential hypertension Enalapril, Tenormin -Hyperlipidemia Simvastatin Stable continue current medication treatment plan. Thank you Dr. Jordan
[2022-06-23] MEDS: LACTATED RINGERS 1,000 ML IV SCH (03:35)
[2022-06-23] MEDS: ENOXAPARIN 30 MG/0.3 ML SYRINGE SQ SCH (07:34)
[2022-06-23] MEDS: MULTIVITAMINS, THERA 1 EACH TAB PO SCH (07:35)
[2022-06-23] MEDS: MONTELUKAST 10 MG TAB PO SCH (07:35)
[2022-06-23] MEDS: PANTOPRAZOLE 40 MG TABLET PO SCH (07:35)
[2022-06-23] MEDS: lisinopriL 20 MG TAB PO SCH (07:35)
[2022-06-23 07:46] VITALS: BP 157/56; PULSE 60; RESP 18; TEMP 98
[2022-06-23 09:04] LABS: Basophils # (A) 0.04 X 10*3/uL (0.00-0.10); Basophils % (A) 0.4 %; Eosinophils # (A) 0.18 X 10*3/uL (0.04-0.35); Eosinophils % (A) 1.8 %; HCT 36.6 % (39.6-50.0); HGB 11.9 g/dL (13.0-17.0); Immature Grans, Automated 0.4 %; Lymphocytes % (A) 7.2 %; MCH 29.7 pg (27.0-32.0); MCHC 32.5 g/dL (32.0-37.0); MCV 91.3 fL (80.0-97.0); Mean Platelet Volume 11.1 fL (9.5-12.2); Monocytes # (A) 1.29 X 10*3/uL (0.20-1.00); Monocytes % (A) 13.2 %; NRBC Per 100 WBC 0 /100 WBCS (0.0-0.0); Platelet Count 262 X 10*3/uL (140-440); RBC 4.01 X 10*6/uL (4.40-5.60); RDW 13.8 % (11.5-14.5); WBC 9.75 X 10*3/uL (4.50-10.00)
== END 2022-06-23 11:56 ==
LOC: OR 09:06 → 4SSUR 13:09 → OR 06-23 11:56
PROVIDERS: ATTEND Orthopaedic Surgery
DX: M16.12 Unilateral primary osteoarthritis, left hip (principal); G89.18 Other acute postprocedural pain; I10 Essential (primary) hypertension; E78.5 Hyperlipidemia, unspecified; I25.10 Atherosclerotic heart disease of native coronary artery without angina pectoris; Z85.46 Personal history of malignant neoplasm of prostate; Z95.5 Presence of coronary angioplasty implant and graft; Z92.3 Personal history of irradiation; Z86.16 Personal history of COVID-19; Z90.49 Acquired absence of other specified parts of digestive tract; Z98.890 Other specified postprocedural states; Z87.891 Personal history of nicotine dependence; Z79.82 Long term (current) use of aspirin; Z79.899 Other long term (current) drug therapy; Z88.6 Allergy status to analgesic agent
CPT/HCPCS: 97116; 97161; 97530; 97166; 64447; 76942; 85025 ×2; 88300; 73501; 27130; C1776; J2250; J1100; J0690 ×3; J2405; J1650 ×2; J2795; J1170 ×2; J3010; 86850; 86900; 86901